=== PATIENT | female | born 1990 | race African-American/Black ===

== ENCOUNTER 2016-04-15 04:10 | Emergency (ER) | payer SELFPAY ==
[~2016-04-15] VITALS: Ht 154.9 cm; Wt 79.8 kg
[2016-04-15 04:38] VITALS: BP 149/69
[2016-04-15] MEDS ORDERED: HYDR15SO4 PO (04:49)
--- NOTE | 2016-04-15 04:49 | PHYS DOC ---
Past Medical History Past Medical History: No Pertinent History Additional Past Medical Histor: NONE PER PT Past Surgical History: No Surgical History Additional Past Surgical Histo: NONE PER PT Alcohol Use: None Drug Use: None Adult General Chief Complaint Chief Complaint: SORE THROAT HPI HPI Patient is a 26 year old female who presents with complaint of sore throat for the past 4 hours. Patient states that the symptoms came on suddenly. Patient states that she feels like "my throat is closing." The patient claims that she is unable to swallow, however patient is noted to be swallowing fluids during the patient interview. Patient denies fevers but states that she is having soreness along her jaw. Patient rates her pain as 10 out of 10. Patient denies any significant past medical history and is not on any medications currently. Patient denies any shortness of breath. [] Review of Systems Review of Systems Constitutional: Denies fever or chills [] Eyes: Denies change in visual acuity, redness, or eye pain [] HENT: Sore throat [] Respiratory: Denies cough or shortness of breath [] Cardiovascular: Denies chest pain or edema [] GI: Denies abdominal pain, nausea, vomiting, bloody stools or diarrhea [] : Denies dysuria or hematuria [] Musculoskeletal: Denies back pain or joint pain [] Integument: Denies rash or skin lesions [] Neurologic: Denies headache, focal weakness or sensory changes [] Current Medications Current Medications Current Medications Medications (Trade) Dose Ordered Sig/Madonna Start Time Stop Time Status Last Admin Dose Admin Dexamethasone Sodium Phosphate (Decadron) 16 mg 1X ONCE 04/15/16 05:00 04/15/16 05:01 DC 04/15/16 05:03 16 MG Penicillin G Benzathine (Bicillin L-A) 1,200,000 unit 1X ONCE 04/15/16 05:00 04/15/16 05:01 DC 04/15/16 05:03 1,200,000 UNIT Allergies Allergies Allergies Coded Allergies Type Severity Reaction Last Updated Verified No Known Drug Allergies 04/12/13 No Physical Exam Physical Exam Constitutional: Alert, afebrile, tearful during exam. [] HENT: Normocephalic, atraumatic, bilateral external ears normal, oropharynx erythematous, tonsillar swelling present, no oral exudates, nose normal. [] Eyes: PERRLA, EOMI, conjunctiva normal, no discharge. [] Neck: Normal range of motion, tender cervical anterior lymphadenopathy, supple, no stridor. [] Cardiovascular:Heart rate regular rhythm, no murmur [] Lungs & Thorax: Bilateral breath sounds clear to auscultation [] Abdomen: Bowel sounds normal, soft, no tenderness, no masses, no pulsatile masses. [] Skin: Warm, dry, no erythema, no rash. [] Back: No tenderness, no CVA tenderness. [] Extremities: No tenderness, no cyanosis, no clubbing, ROM intact, no edema. [] Neurologic: Alert and oriented X 3, normal motor function, normal sensory function, no focal deficits noted. [] Current Patient Data Vital Signs Vital Signs Date Time Temp Pulse Resp B/P Pulse Ox O2 Delivery O2 Flow Rate FiO2 04/15/16 04:38 98.9 67 16 98 Room Air 98.9 EKG EKG Not performed [] Radiology/Procedures Radiology/Procedures Not performed [] Course & Med Decision Making Course & Med Decision Making Pertinent Labs and Imaging studies reviewed. (See chart for details) Patient's strep test was negative in the emergency department, however the patient has clinical signs of possible acute bacterial pharyngitis. I have elected to treat patient empirically for possible strep pharyngitis. The patient was given an IM dose of Bicillin L-A in the emergency department as well as IM Decadron for treatment of throat inflammation. Patient was written for [employer] elixir for continued treatment of throat pain. Advise follow-up in 2- 3 days a primary doctor and return to emergency department for any worsening symptoms. Patient voiced understanding and in agreement with treatment plan. Dragon Disclaimer Dragon Disclaimer This electronic medical record was generated, in whole or in part, using a voice recognition dictation system. Departure Departure Impression: Primary Impression: Acute pharyngitis Disposition: 01 HOME, SELF-CARE Condition: STABLE Referrals: NO PCP (PCP) Patient Instructions: Viral and Bacterial Pharyngitis Additional Instructions: You were treated with an injection of penicillin for treatment of your throat infection. You will not require any further antibiotic treatment. Follow-up with your primary doctor in 2-3 days. Return to the emergency department for any worsening symptoms. Scripts Hydrocodone Bit/Acetaminophen (Hydrocodone-Apap 7.5-325/15 Soln )15 Ml [id number] Ml PO Q4-6HRS PRN PAIN #120 ML Ref 0 Prov:LEATHA BARAKAT MD 04/15/16 Problem Qualifiers Primary Impression: Acute pharyngitis Pharyngitis/tonsillitis etiology: unspecified etiology Qualified Code: J02.9 - Acute pharyngitis, unspecified LEATHA BARAKAT MD Apr 15, 2016 04:49
[2016-04-15] MEDS ORDERED: PENICILLIN G BENZATHINE LA 1,200,000 UNIT/2 ML DISP.SYRIN. IM ONE (05:00)
[2016-04-15] MEDS ORDERED: DEXAMETHASONE SOD PHOS 20 MG/5 ML VIAL. IM ONE (05:00)
[2016-04-15 08:28] LABS: NEGATIVE OBC STREP NEG; POSITIVE OBC STREP POS
== END 2016-04-15 05:26 | disposition home or self-care (01) ==
LOC: ER 04:10
DX: J02.9 Acute pharyngitis, unspecified (principal)
CPT/HCPCS: 87070; 87880; 96372; 99284; J0561; J1100